=== PATIENT | male | born 1975 | race Caucasian/White ===

== ENCOUNTER 2021-08-17 09:24 | Emergency (ER) | payer BC ==
[~2021-08-17] VITALS: Ht 182.9 cm; Wt 86.2 kg
[2021-08-17] MEDS ORDERED: ACETAMINOPHEN 325 MG TABLET PO ONE (10:30)
--- NOTE | 2021-08-17 10:31 | NUR ---
BIBS C/O THROAT PAIN STARTED 08/13 WORST TODAY "I FEEL LIKE I HAVE FLUID IN MY CHEST." VITALS ARE WITHIN NORMAL LIMITS. BREATHING IS EVEN AND UNLABORED, NO SOB NOTED. PT DECLINDED HAVING AN IV.
[2021-08-17] MEDS ORDERED: ACETAMINOPHEN 325 MG TABLET ONE (10:40)
--- NOTE | 2021-08-17 10:47 | NUR ---
LAB AT BEDSIDE
[2021-08-17] MEDS ORDERED: DEXAMETHASONE SOD PHOSPHATE 10 MG/ML VIAL IV ONE (11:00)
[2021-08-17] MEDS ORDERED: ALBUTEROL FS 2.5 MG/3 ML VIAL.NEB NEB ONE (11:00)
[2021-08-17] MEDS ORDERED: IPRATROPIUM NEB FS 0.5 MG/2.5 ML AMPUL.NEB NEB ONE (11:00)
[2021-08-17] MEDS ORDERED: LIDOCAINE VISCOUS 2% UD 15 ML UDC MM ONE (11:00)
[2021-08-17] MEDS ORDERED: MENTHOL/CETYLPYRD (CEPACOL) 1 LOZ LOZENGE PO ONE (11:00)
[2021-08-17] MEDS ORDERED: DEXAMETHASONE SOD PHOSPHATE 10 MG/ML VIAL ONE (11:07)
[2021-08-17] MEDS ORDERED: LIDOCAINE VISCOUS 2% UD 15 ML UDC ONE (11:08)
[2021-08-17] MEDS ORDERED: MENTHOL/CETYLPYRD (CEPACOL) 1 LOZ LOZENGE ONE (11:08)
[2021-08-17 11:14] LABS: BASOPHILS % (AUTO) 0.1 % (0.0-2.0); EOSINOPHILS % (AUTO) 0.3 % (0.0-6.0); HEMATOCRIT 43 % (39-51); HEMOGLOBIN 14.3 g/dL (13.5-17.5); LYMPHOCYTES # (AUTO) 0.6 K/uL (0.8-4.8); LYMPHOCYTES % (AUTO) 5.4 % (20.0-44.0); MEAN CORPUSCULAR HGB CONC 34 g/dl (31.0-36.0); MEAN CORPUSCULAR VOLUME 90 fL (80-96); MONOCYTES % (AUTO) 9.5 % (2.0-12.0); NEUTROPHILS # (AUTO) 9.3 K/uL (1.8-8.9); NEUTROPHILS % (AUTO) 84.7 % (43.0-81.0); PLATELET COUNT (AUTO) 199 K/uL (150-450); RED BLOOD CELL COUNT(AUTO) 4.72 MIL/uL (4.5-6.0)
[2021-08-17] MEDS ORDERED: ALBUTEROL FS 2.5 MG/3 ML VIAL.NEB ONE (11:28)
[2021-08-17] MEDS ORDERED: IPRATROPIUM NEB FS 0.5 MG/2.5 ML AMPUL.NEB ONE (11:28)
[2021-08-17 11:29] LABS: CALCIUM, SERUM 8.4 mg/dL (8.5-10.1); CARBON DIOXIDE 30 mmol/L (21-32); CHLORIDE 100 mmol/L (98-107); CREATININE 1.2 mg/dL (0.6-1.3); GLUCOSE 105 mg/dL (74-106); SODIUM SERUM 137 mmol/L (136-145); UREA NITROGEN, BLOOD 11 mg/dL (7-18)
[2021-08-17] MEDS ORDERED: MENT1LOZ19 MM (12:30)
[2021-08-17] MEDS ORDERED: ACET237L PO (12:40)
[2021-08-17 12:46] VITALS: BP 131/74
--- NOTE | 2021-08-17 12:46 | NUR ---
Patient discharged to home in stable condition. Written and verbal after care instructions given. Patient verbalizes understanding of instruction.
== END 2021-08-17 12:49 | disposition home or self-care (01) ==
LOC: ER 09:29
DX: U07.1 COVID-19 (principal); J02.9 Acute pharyngitis, unspecified
CPT/HCPCS: 36415; 71045; 80048; 84484; 85025; 93005; 94640; 99285; J1100